=== PATIENT | female | born 1990 | race Caucasian/White ===

== ENCOUNTER → 2021-06-22 | Outpatient (CLI) | payer BC, OTHER ==
[~2021-06-22] MED LIST: DOCUSATE SODIU100 MG PO; HYDROCODON-ACE1 EAC4 PO; IBUPROFEN600 MG PO; PEPCID20 MG PO
[2021-06-22 12:56] LABS: HEMOGLOBIN 11.8 gm/dl (12.3-15.3); RED BLOOD COUNT 3.62 M/UL (4.00-5.10); WHITE BLOOD COUNT 7.9 K/UL (4.5-11.0)
== END ==
LOC: GENOP 11:53
PROVIDERS: Obstetrics & Gynecology
DX: Z53.8 Procedure and treatment not carried out for other reasons (principal)
CPT/HCPCS: 36415; 81001; 85025

== ENCOUNTER 2021-06-25 06:37 | Inpatient (IN) | payer BC, OTHER ==
[~2021-06-25] VITALS: Ht 157.5 cm; Wt 78.5 kg
[2021-06-25] MEDS ORDERED: PEPCID20 MG PO (06:43)
[2021-06-25] MEDS ORDERED: IBUPROFEN600 MG PO (10:06)
[2021-06-25] MEDS ORDERED: DOCUSATE SODIU100 MG PO (10:06)
[2021-06-25] MEDS ORDERED: HYDROCODON-ACE1 EAC4 PO (10:06)
[2021-06-26 06:24] LABS: HEMOGLOBIN 11.1 gm/dl (12.3-15.3)
== END 2021-06-26 18:39 | disposition home or self-care (01) | DRG 788 ==
LOC: OB 06:37
PROVIDERS: ADMIT Obstetrics & Gynecology
PROC: 0TN Urinary System, Release (ICD-10-PCS; 2021-06-25)
PROC: 4A1HXCZ Monitoring of Products of Conception, Cardiac Rate, External Approach (ICD-10-PCS; 2021-06-25)
PROC: 10D00Z1 Extraction of Products of Conception, Low, Open Approach (ICD-10-PCS; principal; 2021-06-25 09:58)
DX: O34.211 Maternal care for low transverse scar from previous cesarean delivery (principal); Z3A.39 39 weeks gestation of pregnancy; Z37.0 Single live birth; Z20.822 Contact with and (suspected) exposure to COVID-19; Z82.49 Family history of ischemic heart disease and other diseases of the circulatory system; Z80.9 Family history of malignant neoplasm, unspecified; O99.62 Diseases of the digestive system complicating childbirth; K66.0 Peritoneal adhesions (postprocedural) (postinfection)
CPT/HCPCS: 36415; 81001; 82800; 85014; 85018; 85025; C9113; J0690; J1885; J2274; J2405; J2590; J3010; J7120; U0003

== ENCOUNTER → 2021-10-18 | Outpatient (CLI) | payer BC, OTHER | LOC: KOH-I 15:54 | DX: N13.2 Hydronephrosis with renal and ureteral calculous obstruction (principal) | CPT/HCPCS: 74176 ==